=== PATIENT | female | born 1950 | race Caucasian/White ===

== ENCOUNTER 2021-11-22 18:32 | Inpatient (IN) | payer MEDICARE, MEDICAID ==
[~2021-11-22] VITALS: Ht 167.6 cm; Wt 105.9 kg
[~2021-11-22 18:32] MED LIST: ASPI-100 PO; LISI20TA28 PO; MELO-102 PO; PRED20TA PO; TRAM50TA2 PO
[2021-11-22] MEDS ORDERED: normal saline 1000ML IV soln IVB ONE (18:55)
[2021-11-22] MEDS ORDERED: metoclopramide 5 mg/ml inj IV ONE (18:55)
[2021-11-22] MEDS ORDERED: morphine 4 MG/ML inj SYRINge IV ONE (18:55)
[2021-11-22] MEDS ORDERED: diphenhydrAMINE 50 mg/ml inj IV ONE (18:55)
[2021-11-22] MEDS ORDERED: ketorolac trometh. 30mg/ml inj. IV ONE (19:25)
[2021-11-22 19:34] LABS: BASOPHILS # (AUTO) 0.1 X10'3 (0-0.2); BASOPHILS % (AUTO) 0.3 % (0-1); EOSINOPHILS % (AUTO) 0.2 % (0-6); HEMATOCRIT 42.4 % (35.0-45.0); HEMOGLOBIN 14.1 g/dl (12.0-16.0); LYMPHOCYTES # (AUTO) 1.4 X10'3 (1.1-4.8); LYMPHOCYTES % (AUTO) 7.6 % (21-51); MEAN CORPUSCULAR HEMOGLOBIN 27.2 PG (27.0-31.0); MEAN CORPUSCULAR HGB CONC 33.2 g/dL (33.0-36.5); MEAN CORPUSCULAR VOLUME 81.7 FL (78-98); MEAN PLATELET VOLUME 8.6 FL (7.4-10.4); MONOCYTES # (AUTO) 0.9 X10'3 (0-0.9); MONOCYTES % (AUTO) 5.1 % (2-12); NEUTROPHILS # (AUTO) 16.1 X10'3 (1.8-7.7); NEUTROPHILS % (AUTO) 86.8 % (42-75); PLATELET COUNT 317 X10'3 (140-440); RED BLOOD COUNT 5.19 X10'6 (4.20-5.60); RED CELL DISTRIBUTION WIDTH 15.1 % (11.5-14.5); WHITE BLOOD COUNT 18.5 X10'3 (4.5-11.0)
[2021-11-22 19:44] LABS: ALANINE AMINOTRANSFERASE 22 U/L (12-78); ALBUMIN 3.2 G/DL (3.4-5.0); ALBUMIN/GLOBULIN RATIO 0.7 (1.1-1.5); ALKALINE PHOSPHATASE 132 IU/L (46-116); ANION GAP 17 (8-16); ASPARTATE AMINO TRANSFERASE 13 U/L (10-37); BILIRUBIN,TOTAL 0.7 MG/DL (0.1-1.0); BLOOD UREA NITROGEN 28 MG/DL (7-18); BUN/CREATININE RATIO 20.4 (6.6-38.0); CALCIUM 9.3 MG/DL (8.5-10.1); CHLORIDE 101 MMOL/L (99-107); CREATININE 1.37 MG/DL (0.40-0.90); GLUCOSE 179 MG/DL (70-104); LIPASE 58 U/L (73-393); POTASSIUM 3.6 MMOL/L (3.5-5.1); SODIUM 141 MMOL/L (135-145); TOTAL PROTEIN 7.7 G/DL (6.4-8.2); eGFR 38 ML/MIN
[2021-11-22] MEDS ORDERED: ceFOXitin 2GM-NS 100mL ADDvant 100 ML IV ONE (20:45)
[2021-11-22] MEDS ORDERED: ATOR10TA11 PO (21:00)
[2021-11-22] MEDS ORDERED: LISI30TA4 PO (21:00)
[2021-11-22] MEDS ORDERED: METF-900 PO (21:00)
[2021-11-22] MEDS ORDERED: HYDR25TA5 PO (21:27)
[2021-11-22] MEDS ORDERED: magnesium 2GM in 50ml NS 50 ML IV PRN (22:35)
[2021-11-22] MEDS ORDERED: dextrose 50%-water 50ml dispensing syringe IV PRN ×2 (22:35)
[2021-11-22] MEDS ORDERED: ondansetron/PF 4mg/2ml inj IV PRN (22:35)
[2021-11-22] MEDS ORDERED: glucagon, human recombinant 1mg kit SUBCUT PRN (22:35)
[2021-11-22] MEDS ORDERED: morphine 2 MG/ML inj. syringe IV PRN ×2 (22:35)
[2021-11-22] MEDS ORDERED: dextrose 5%-1/2 normal saline 1,000 ML IV SCH (22:35)
[2021-11-22] MEDS ORDERED: magnesium Cl slow-release 64mg tablet PO PRN (22:35)
[2021-11-22] MEDS ORDERED: magnesium hydroxide 30ml (MOM) UD suspension PO PRN (22:35)
[2021-11-22] MEDS ORDERED: DEXTROSE 15 GM of carb/4 tabs (each vial/BOTTLE has 4 tablets) PO PRN ×2 (22:35)
[2021-11-22] MEDS ORDERED: magnesium 4gm in 100ml NS 100 ML IV PRN (22:35)
[2021-11-22] MEDS ORDERED: acetaminophen 325mg tablet PO PRN (22:35)
[2021-11-22] MEDS ORDERED: potassium CL 10mEq/100ml bag 100 ML IV PRN (22:35)
[2021-11-22] MEDS ORDERED: POTASSIUM BICARB 20meq eff tab 20 MEQ TABLET.EFF PO PRN ×2 (22:35)
[2021-11-22] MEDS ORDERED: mag hydrox/Alum hydrox/simeth 30ml oral suspension PO PRN (22:35)
[2021-11-22] MEDS ORDERED: insulin Lispro (HumaLOG) vial - multi-dose SQ SCH (22:35)
[2021-11-22] MEDS ORDERED: MESSAGE TO PHARMACY PO ONE (22:35)
[2021-11-22 23:11] LABS: MAGNESIUM 1.9 MG/DL (1.5-2.4)
[2021-11-22 23:19] LABS: HEMOGLOBIN A1C 6.1 % (4.5-6.2)
--- NOTE | 2021-11-23 00:44 | NUR ---
Patient in room ED 2. I have received report from Alicia SOLORIO and had the opportunity to ask questions and assume patient care.
[2021-11-23 02:01] VITALS: BP 145/62
[2021-11-23 04:09] VITALS: BP 145/62
[2021-11-23] MEDS ORDERED: METF-436 PO (04:30)
[2021-11-23 06:00] VITALS: BP 128/76
--- NOTE | 2021-11-23 06:23 | NUR ---
Problems reprioritized. Patient report given, questions answered & plan of care reviewed with Ellie SOLORIO.
--- NOTE | 2021-11-23 06:51 | NUR ---
Patient in room [facility]TH[facility] 4007. I have received report from Rosetta YANEZ, and Lacey SOLORIO and had the opportunity to ask questions and assume patient care.
[2021-11-23] MEDS ORDERED: pantoprazole 40mg Tablet.DR PO SCH (07:30)
--- NOTE | 2021-11-23 07:41 | NUR ---
Malnutrition screen: Pt admitted w/ N/V/D x 5 days r/t cholelithiasis per EMR. Pt reported ~14lb wt loss in that time as she has not been able to keep anything down. That reported amount of wt loss is likely r/t fluid losses as well, not likely to be just from fat/muscle wasting. No visible signs of muscle/fat wasting reported. No edema noted. Currently on Carb control diet pending PO intake, At this time pt does not meet minimum criteria for malnutrition. Pt noted w/ hx of DM A1c 6.1 well controlled.. Recommend liberalizing to Regular diet Addendum: 11/23/21 at [address] Amended: Links added.
[2021-11-23] MEDS ORDERED: ceFOXitin inj 1,000 MG in normal saline 100ml IV soln 100 ML IV SCH (08:00)
[2021-11-23] MEDS ORDERED: K and/or MAG REPLACEMENT MC SCH (08:00)
[2021-11-23] MEDS ORDERED: docusate sod 100mg capsule PO SCH (08:00)
[2021-11-23] MEDS ORDERED: enoxaparin 40mg/0.4ml syringe SUBCUT SCH (08:00)
[2021-11-23 10:00] VITALS: BP 116/50
[2021-11-23] MEDS ORDERED: OMEP40CA21 PO (11:33)
[2021-11-23] MEDS ORDERED: AMOX-117 PO (11:33)
[2021-11-23 12:48] LABS: ALANINE AMINOTRANSFERASE 16 U/L (12-78); ALBUMIN 2.7 G/DL (3.4-5.0); ALBUMIN/GLOBULIN RATIO 0.7 (1.1-1.5); ALKALINE PHOSPHATASE 108 IU/L (46-116); ANION GAP 12 (8-16); ASPARTATE AMINO TRANSFERASE 20 U/L (10-37); BILIRUBIN,TOTAL 0.5 MG/DL (0.1-1.0); BLOOD UREA NITROGEN 33 MG/DL (7-18); BUN/CREATININE RATIO 24.8 (6.6-38.0); CALCIUM 8.5 MG/DL (8.5-10.1); CHLORIDE 104 MMOL/L (99-107); CHOL/HDL RATIO 2.4 (0.00-4.99); CHOLESTEROL 134 MG/DL (0-200); CREATININE 1.33 MG/DL (0.40-0.90); GLUCOSE 132 MG/DL (70-104); HDL CHOLESTEROL 56 MG/DL (35-60); LDL CHOLESTEROL 61 MG/DL (50-100); POTASSIUM 3.6 MMOL/L (3.5-5.1); SODIUM 140 MMOL/L (135-145); TOTAL CARBON DIOXIDE 23.7 MMOL/L (24-32); TOTAL PROTEIN 6.5 G/DL (6.4-8.2); TRIGLYCERIDES 103 MG/DL (20-135); eGFR 39 ML/MIN
--- NOTE | 2021-11-23 14:26 | NUR ---
Agree with SCHOOL PSYCHOLOGY PROFESSOR ESHA assessment.
[2021-11-23] MEDS ORDERED: insulin glargine (Lantus) pen - multi-dose SQ SCH (21:00)
--- NOTE | 2021-11-28 10:36 | NUR ---
Case Management DC follow up: Spoke with Patient via telephone. S/P: Patient Reports: Denies: Acute /continuous chest pain, emergent SOB,resp distress, abdominal pain/distention, N/V, weakness, vertigo, syncope episodes,hypertension, headache, s/s of stroke/BE-FAST,hematuria , hematochezia,melena, unexplained bruising, bleeding, fever, chills.Verbalizes she continues to have diarrhea ;addressed problem with her PCP FLANGE MACHINE OPERATOR Cecilia Lowe , and placed on the BRAT Diet.Verbalizes understanding of s/s that warrant 9-11/ER visit for further evaluation.Verbalizes understanding of new Rx:, why prescribed; continues/resumes current Rx as ordered.Verbalizes she has scheduled follow up appointment with . Verbalized she was very pleased with staff and nursing care, they were very good.Needs met, questions/concerns addressed at DC.No further questions/concerns regarding recent hospital stay and/or DC status at this time.
== END 2021-11-23 14:00 | disposition home or self-care (01) | DRG 445 ==
LOC: ER 18:32 → ED HOLD 22:46 → ORTHO 4S 11-23 00:55
PROVIDERS: ADMIT Internal Medicine; ATTEND Internal Medicine
DX: K80.10 Calculus of gallbladder with chronic cholecystitis without obstruction (principal); J98.11 Atelectasis; E11.9 Type 2 diabetes mellitus without complications; Z20.822 Contact with and (suspected) exposure to COVID-19; E66.9 Obesity, unspecified; M19.90 Unspecified osteoarthritis, unspecified site; E78.00 Pure hypercholesterolemia, unspecified; I10 Essential (primary) hypertension; Z90.710 Acquired absence of both cervix and uterus; Z79.899 Other long term (current) drug therapy; Z79.82 Long term (current) use of aspirin; Z98.891 History of uterine scar from previous surgery; Z89.421 Acquired absence of other right toe(s); Z68.37 Body mass index [BMI] 37.0-37.9, adult; K76.0 Fatty (change of) liver, not elsewhere classified; R16.0 Hepatomegaly, not elsewhere classified
CPT/HCPCS: 36415; 71045; 74176; 76700; 80053; 80061; 82948; 83036; 83690; 83735; 84145; 85025; 87081; 93005; 93306; 96361; 96365; 96375; 99285; G0378; J0694; J1200; J1650; J1815; J1885; J2270; J2765; J3490; J7030; J7042